=== PATIENT | female | born 1970 | race African-American/Black ===

== ENCOUNTER 2021-02-05 19:29 | Emergency (ER) | payer MEDICAID ==
[~2021-02-05] VITALS: Ht 154.9 cm; Wt 114.0 kg
[2021-02-05 19:53] VITALS: BP 152/62
[2021-02-05] MEDS ORDERED: LIDO700A30 TP (20:26)
[2021-02-05] MEDS ORDERED: MOBI7 MT (20:26)
== END 2021-02-05 20:53 | disposition home or self-care (01) ==
LOC: ER 19:29
DX: M25.562 Pain in left knee (principal)
CPT/HCPCS: 99282

== ENCOUNTER 2021-11-16 14:40 | Emergency (ER) | payer MEDICAID ==
[~2021-11-16] VITALS: Ht 157.5 cm; Wt 127.0 kg
[~2021-11-16 14:40] MED LIST: LIDO700A30 TP; MOBI7 MT
[2021-11-16] MEDS ORDERED: KETOROLAC 15MG/ML VIAL IV ONE (22:30)
[2021-11-16] MEDS ORDERED: DIPHENHYDRAMINE 50MG/ML VIAL IV ONE (22:30)
[2021-11-16] MEDS ORDERED: METOCLOPRAMIDE HCL 10MG/2ML VIAL IV ONE (22:30)
[2021-11-16] MEDS ORDERED: SODIUM CHLORIDE 0.9% 1,000 ML IV ONE (22:30)
[2021-11-16 23:02] LABS: BASOPHILS % 1.1 % (0.0-2.0); EOSINOPHILS % 3.6 % (0.0-5.0); HEMATOCRIT. 38.9 % (36.0-48.0); HEMOGLOBIN. 12.6 g/dL (12.0-16.0); LYMPHOCYTES % 42.3 % (20.0-50.0); MEAN CORPUSCULAR HEMOGLOBIN 27.5 pg (28.0-32.0); MEAN PLATELET VOLUME 7.4 fl (7.4-10.4); MONOCYTES % 9.2 % (2.0-8.0); NEUTROPHILS % 43.8 % (40.0-76.0); PLATELET 261 x1000/uL (130-400); RED BLOOD CELL COUNT 4.58 mill/uL (4.2-5.4); RED CELL DISTRIBUTION WIDTH 14.2 % (11.6-14.6)
[2021-11-16 23:08] LABS: CHLORIDE 105 mEq/L (98-107)
[2021-11-17 03:20] VITALS: BP 173/88
== END 2021-11-17 03:29 | disposition home or self-care (01) ==
LOC: ER 14:40
DX: R51.9 Headache, unspecified (principal); R11.10 Vomiting, unspecified; M79.602 Pain in left arm; M25.512 Pain in left shoulder
CPT/HCPCS: 36415; 71045; 80053; 83880; 84484; 85025; 93005; 96361; 96374; 96375; 99285; J1200; J1885; J2765; J7030

== ENCOUNTER 2023-08-21 19:00 | Emergency (ER) | payer MEDICAID ==
[~2023-08-21] VITALS: Ht 167.6 cm; Wt 91.0 kg
[2023-08-21 19:10] VITALS: BP 161/74; O2SAT 100
[2023-08-21] MEDS ORDERED: ACETAMINOPHEN 325MG TABLET PO ONE (22:45)
[2023-08-21 22:54] LABS: BASOPHILS % 1.5 % (0.0-2.0); HEMATOCRIT. 40.1 % (36.0-48.0); HEMOGLOBIN. 12.9 g/dL (12.0-16.0); LYMPHOCYTES % 46.9 % (20.0-50.0); MEAN CORPUSCULAR HEMOGLOBIN 27.9 pg (28.0-32.0); MEAN CORPUSCULAR HGB CONC 32.2 g/dL (31.0-37.0); MEAN CORPUSCULAR VOLUME 86.7 fL (81.0-99.0); MONOCYTES % 9.4 % (2.0-8.0); NEUTROPHILS % 39.2 % (40.0-76.0); PLATELET 281 x1000/uL (130-400); RED BLOOD CELL COUNT 4.62 mill/uL (4.2-5.4); RED CELL DISTRIBUTION WIDTH 13.8 % (11.6-14.6)
[2023-08-21 23:11] LABS: ALANINE AMINOTRANSFERASE 15 IU/L (10-49); ASPARTATE AMINOTRANSFERASE 17 IU/L (<34); BILIRUBIN TOTAL 0.3 mg/dL (0.1-1.0); CALCIUM 8.8 mg/dL (8.7-10.4); CARBON DIOXIDE 28 mEq/L (21-32); CHLORIDE 107 mEq/L (98-107); CREATININE 0.7 mg/dL (0.6-1.0); GLUCOSE 90 mg/dL (70-105); POTASSIUM 3.9 mEq/L (3.5-5.1); PROTEIN TOTAL 7.1 g/dL (6.0-8.3); SODIUM 142 mEq/L (136-145); TROPONIN I HIGH SENSITIVITY 4 ng/L (3.0-34); UREA NITROGEN BLOOD 14 mg/dL (9-23)
[2023-08-22 01:40] VITALS: PULSE 76; RESP 18; TEMP 98.6
== END 2023-08-22 01:42 | disposition home or self-care (01) ==
LOC: ER 19:00
DX: R51.9 Headache, unspecified (principal); I10 Essential (primary) hypertension; Z90.710 Acquired absence of both cervix and uterus; Z88.8 Allergy status to other drugs, medicaments and biological substances; Z91.018 Allergy to other foods
CPT/HCPCS: 36415; 71045; 80053; 81025; 83880; 84484; 85025; 93005; 99285

== ENCOUNTER 2023-12-17 22:04 | Emergency (ER) | payer MEDICAID ==
[~2023-12-17] VITALS: Ht 157.5 cm; Wt 97.0 kg
[2023-12-17 23:31] VITALS: O2SAT 100
[2023-12-17 23:48] LABS: BASOPHILS % 1.2 % (0.0-2.0); EOSINOPHILS % 2.1 % (0.0-5.0); HEMATOCRIT. 37.7 % (36.0-48.0); HEMOGLOBIN. 12.3 g/dL (12.0-16.0); LYMPHOCYTES % 47.1 % (20.0-50.0); MEAN CORPUSCULAR HEMOGLOBIN 28.4 pg (28.0-32.0); MEAN CORPUSCULAR HGB CONC 32.7 g/dL (31.0-37.0); MEAN CORPUSCULAR VOLUME 86.9 fL (81.0-99.0); MEAN PLATELET VOLUME 7.6 fl (7.4-10.4); MONOCYTES % 7.4 % (2.0-8.0); NEUTROPHILS % 42.2 % (40.0-76.0); PLATELET 261 x1000/uL (130-400); RED BLOOD CELL COUNT 4.34 mill/uL (4.2-5.4); RED CELL DISTRIBUTION WIDTH 13.3 % (11.6-14.6); WHITE BLOOD COUNT 7.2 x1000/uL (4.5-11.0)
[2023-12-18] LABS: INR 0.9; PARTIAL THROMBOPLASTIN TIME 27.7 sec (23.4-31.0); PROTHROMBIN TIME 10.5 sec (9.6-11.0)
[2023-12-18 00:08] LABS: ALANINE AMINOTRANSFERASE 22 IU/L (10-49); ALBUMIN 4.4 g/dL (3.2-4.8); ASPARTATE AMINOTRANSFERASE 21 IU/L (<34); BILIRUBIN TOTAL 0.3 mg/dL (0.1-1.0); CALCIUM 8.7 mg/dL (8.7-10.4); CARBON DIOXIDE 29 mEq/L (21-32); CHLORIDE 106 mEq/L (98-107); GLUCOSE 95 mg/dL (70-105); POTASSIUM 3.6 mEq/L (3.5-5.1); PROTEIN TOTAL 7.5 g/dL (6.0-8.3); SODIUM 139 mEq/L (136-145); TROPONIN I HIGH SENSITIVITY 5 ng/L (3.0-34); UREA NITROGEN BLOOD 20 mg/dL (9-23)
[2023-12-18 03:22] LABS: CLARITY URINE CLOUDY (CLEAR); COLOR URINE YELLOW (YELLOW); GLUCOSE URINE NEGATIVE (NEGATIVE); KETONES URINE TRACE (NEGATIVE); LEUKOCYTE ESTERASE URINE NEGATIVE (NEGATIVE); NITRITE URINE NEGATIVE (NEGATIVE); OCCULT BLOOD URINE NEGATIVE (NEGATIVE); PH URINE 5.5 (4.5-8.0); PROTEIN URINE NEGATIVE (NEGATIVE); SPECIFIC GRAVITY URINE 1.028 (1.005-1.030)
[2023-12-18] MEDS ORDERED: BENZ100C86 MT (04:40)
[2023-12-18] MEDS ORDERED: PRED10TA MT (04:40)
[2023-12-18] MEDS ORDERED: DOXY100C5 MT (04:40)
[2023-12-18 04:55] VITALS: BP 159/63; PULSE 56; RESP 18; TEMP 98.2
[2023-12-18 06:00] LABS: SQUAMOUS EPITHELIAL CELL URINE 1+ /lpf (RARE/1+)
[2023-12-18 06:02] LABS: RBC URINE 0-2 /hpf (0-2); WBC URINE 0-2 /hpf (0-2)
[2023-12-18 06:03] LABS: BACTERIA URINE TRACE
== END 2023-12-18 05:30 | disposition home or self-care (01) ==
LOC: ER 22:04
DX: J45.909 Unspecified asthma, uncomplicated (principal); J18.9 Pneumonia, unspecified organism; I10 Essential (primary) hypertension; Z90.710 Acquired absence of both cervix and uterus
CPT/HCPCS: 36415; 71045; 80053; 81003; 81025; 84484; 85025; 93005; 99285

== ENCOUNTER 2024-12-02 20:01 | Emergency (ER) | payer MEDICAID ==
[~2024-12-02] VITALS: Ht 154.9 cm; Wt 89.1 kg
[~2024-12-02 20:01] MED LIST changes: +BENZ100C86 MT; +DOXY100C5 MT; +PRED10TA MT
[2024-12-02 20:04] VITALS: TEMP 37; O2SAT 99
[2024-12-02 20:10] VITALS: O2SAT 100
[2024-12-02 21:03] LABS: BASOPHILS % 1.2 % (0.0-2.0); EOSINOPHILS % 1.8 % (0.0-5.0); HEMATOCRIT. 39.6 % (36.0-48.0); HEMOGLOBIN. 12.7 g/dL (12.0-16.0); LYMPHOCYTES % 48.1 % (20.0-50.0); MEAN CORPUSCULAR HEMOGLOBIN 27.2 pg (28.0-32.0); MEAN CORPUSCULAR VOLUME 84.9 fL (81.0-99.0); MEAN PLATELET VOLUME 8.4 fl (7.4-10.4); MONOCYTES % 9.5 % (2.0-8.0); NEUTROPHILS % 39.4 % (40.0-76.0); PLATELET 245 x1000/uL (130-400); RED BLOOD CELL COUNT 4.66 mill/uL (4.2-5.4); WHITE BLOOD COUNT 5.1 x1000/uL (4.5-11.0)
[2024-12-02 21:17] LABS: CALCIUM 9.5 mg/dL (8.7-10.4); CARBON DIOXIDE 30 mEq/L (21-32); CHLORIDE 101 mEq/L (98-107); POTASSIUM 3.3 mEq/L (3.5-5.1); SODIUM 142 mEq/L (136-145)
[2024-12-02 21:22] LABS: CREATININE 0.9 mg/dL (0.6-1.0); GLUCOSE 86 mg/dL (70-105)
[2024-12-02 21:23] LABS: UREA NITROGEN BLOOD 16 mg/dL (9-23)
[2024-12-02 21:32] LABS: HCG SCREEN NEGATIVE
[2024-12-02] MEDS: DIPHENHYDRAMINE 50MG/ML VIAL IV NR (22:21)
[2024-12-02] MEDS: SODIUM CHLORIDE 0.9% 1,000 ML IV ONE (22:21)
[2024-12-02] MEDS: METOCLOPRAMIDE HCL 10MG/2ML VIAL IV NR (22:21)
[2024-12-02 22:22] VITALS: BP 113/83; PULSE 85; RESP 16
[2024-12-02] MEDS: KETOROLAC 30MG/ML VIAL IV NR (22:22)
[2024-12-02 22:52] LABS: CLARITY URINE CLOUDY (CLEAR); COLOR URINE DARK YELLOW (YELLOW); GLUCOSE URINE NEGATIVE (NEGATIVE); KETONES URINE TRACE (NEGATIVE); LEUKOCYTE ESTERASE URINE TRACE (NEGATIVE); NITRITE URINE NEGATIVE (NEGATIVE); OCCULT BLOOD URINE NEGATIVE (NEGATIVE); PH URINE 5.5 (4.5-8.0); PROTEIN URINE TRACE (NEGATIVE); SPECIFIC GRAVITY URINE 1.036 (1.005-1.030)
[2024-12-02 23:21] LABS: BACTERIA URINE 3+; RBC URINE 0-2 /hpf (0-2); SQUAMOUS EPITHELIAL CELL URINE 3+ /lpf (RARE/1+)
== END 2024-12-03 00:58 | disposition home or self-care (01) ==
LOC: ER 20:01
DX: R11.2 Nausea with vomiting, unspecified (principal); I10 Essential (primary) hypertension; Z79.1 Long term (current) use of non-steroidal anti-inflammatories (NSAID); Z90.710 Acquired absence of both cervix and uterus; Z88.1 Allergy status to other antibiotic agents; Z91.018 Allergy to other foods
CPT/HCPCS: 99284; 96374; 96375; 80048; 81003; 84703; 83690; 85025; 36415; J1885; J1200; J2765

== ENCOUNTER 2025-06-05 20:26 | Emergency (ER) | payer MEDICAID ==
[~2025-06-05] VITALS: Ht 167.6 cm; Wt 75.0 kg
[2025-06-05 20:29] VITALS: TEMP 36.9; O2SAT 100
[2025-06-05] MEDS: DEXAMETHASONE 10 MG/ML VIAL PO ONE (21:06)
[2025-06-05] MEDS: DIPHENHYDRAMINE 25MG CAPSULE PO ONE (21:06)
[2025-06-05] MEDS: LOSARTAN 50 MG TABLET PO ONE (21:06)
[2025-06-05 21:07] VITALS: TEMP 98.4
[2025-06-05] MEDS: HYDROCHLOROTHIAZIDE 25MG TABLET PO ONE (21:07)
[2025-06-05] MEDS: METOCLOPRAMIDE HCL 10MG TABLET PO ONE (21:07)
[2025-06-05] MEDS: ACETAMINOPHEN 500MG TABLET PO ONE (21:07)
[2025-06-05] MEDS ORDERED: LOSA1TAB34 MT (22:08)
[2025-06-05] MEDS ORDERED: OFLO5DRO4 LEFT EAR (22:21)
[2025-06-05 22:22] VITALS: BP 153/56; PULSE 60; RESP 17; O2SAT 98
== END 2025-06-05 22:25 | disposition home or self-care (01) ==
LOC: ER 20:26
DX: R51.9 Headache, unspecified (principal); I10 Essential (primary) hypertension; J45.909 Unspecified asthma, uncomplicated; H60.91 Unspecified otitis externa, right ear; Z90.710 Acquired absence of both cervix and uterus; Z79.1 Long term (current) use of non-steroidal anti-inflammatories (NSAID); Z79.52 Long term (current) use of systemic steroids; Z79.899 Other long term (current) drug therapy; Z91.018 Allergy to other foods; Z88.1 Allergy status to other antibiotic agents
CPT/HCPCS: 99284; Q0163; J8597; J1100

== ENCOUNTER 2025-08-27 11:38 | Emergency (ER) | payer MEDICAID ==
[~2025-08-27] VITALS: Ht 154.9 cm; Wt 70.0 kg
[~2025-08-27 11:38] MED LIST changes: +LOSA1TAB34 MT; +OFLO5DRO4 LEFT EAR
[2025-08-27 11:42] VITALS: O2SAT 100
[2025-08-27 11:51] VITALS: BP 133/84; PULSE 86; RESP 17; TEMP 36.6; O2SAT 100
[2025-08-27] MEDS: LIDOCAINE HCL 1% 20ML VIAL INFIL ONE (13:45)
[2025-08-27] MEDS: BACITRACIN ZINC OINT UDPKT TOP ONE (14:30)
[2025-08-27] MEDS ORDERED: CEPH500C2 MT (15:37)
== END 2025-08-27 16:05 | disposition home or self-care (01) ==
LOC: ER 11:38
DX: S61.216A Laceration without foreign body of right little finger without damage to nail, initial encounter (principal); I10 Essential (primary) hypertension; J45.909 Unspecified asthma, uncomplicated; Z79.899 Other long term (current) drug therapy; Z90.710 Acquired absence of both cervix and uterus; Z91.018 Allergy to other foods; Z88.1 Allergy status to other antibiotic agents; X58.XXXA Exposure to other specified factors, initial encounter; Y93.89 Activity, other specified; Y92.89 Other specified places as the place of occurrence of the external cause; Y99.8 Other external cause status
CPT/HCPCS: 99283; 12001; J2003

== ENCOUNTER 2025-08-29 13:41 | Emergency (ER) | payer MEDICAID ==
[~2025-08-29] VITALS: Ht 162.6 cm; Wt 70.0 kg
[~2025-08-29 13:41] MED LIST changes: +CEPH500C2 MT
[2025-08-29 13:43] VITALS: O2SAT 99
[2025-08-29 15:35] VITALS: BP 122/78; PULSE 82; RESP 18; TEMP 36.6; O2SAT 99
== END 2025-08-29 15:35 | disposition home or self-care (01) ==
LOC: ER 13:41
DX: S61.219A Laceration without foreign body of unspecified finger without damage to nail, initial encounter (principal); J45.909 Unspecified asthma, uncomplicated; I10 Essential (primary) hypertension; Z48.00 Encounter for change or removal of nonsurgical wound dressing; Z79.1 Long term (current) use of non-steroidal anti-inflammatories (NSAID); Z79.899 Other long term (current) drug therapy; Z88.1 Allergy status to other antibiotic agents; Z90.710 Acquired absence of both cervix and uterus; Z91.018 Allergy to other foods; X58.XXXA Exposure to other specified factors, initial encounter; Y93.89 Activity, other specified; Y92.89 Other specified places as the place of occurrence of the external cause; Y99.8 Other external cause status
CPT/HCPCS: 99282